=== PATIENT | female | born 1990 | race Caucasian/White ===

== ENCOUNTER 2023-06-15 13:51 | Emergency (ER) | payer SELFPAY ==
[~2023-06-15] VITALS: Ht 167.6 cm; Wt 77.0 kg
[2023-06-15 14:02] VITALS: O2SAT 100
[2023-06-15 15:45] VITALS: BP 129/74; PULSE 82; RESP 16; TEMP 98.6
== END 2023-06-15 15:51 | disposition home or self-care (01) ==
LOC: ER 13:51
DX: S09.90XA Unspecified injury of head, initial encounter (principal); F41.9 Anxiety disorder, unspecified; X58.XXXA Exposure to other specified factors, initial encounter; Y93.89 Activity, other specified; Y92.89 Other specified places as the place of occurrence of the external cause; Y99.8 Other external cause status
CPT/HCPCS: 99281